=== PATIENT | female | born 1980 | race Caucasian/White ===

== ENCOUNTER 2021-07-09 11:10 | Emergency (ER) | payer OTHER, SELFPAY ==
[~2021-07-09] VITALS: Ht 160 cm; Wt 59.0 kg
[2021-07-09 11:19] VITALS: BP 101/70
[2021-07-09] MEDS ORDERED: KETOROLAC 30 MG/ML VIAL IM ONE (12:15)
--- NOTE | 2021-07-09 13:11 | NUR ---
CT CONSENT OBTAINED. LABS DRAWN THROUGH IV 20G L AC AND GIVEN TO TRISTAN MATTA.
[2021-07-09] MEDS: ACETAMINOPHEN EXTRA STRENGTH 500 MG TAB PO ONE (13:16)
[2021-07-09] MEDS: KETOROLAC 15 MG/ML VIAL IVP ONE (13:16)
[2021-07-09] MEDS: PROCHLORPERAZINE 10 MG/2 ML VIAL IVP ONE (13:17)
--- NOTE | 2021-07-09 13:23 | NUR ---
41 Y/O F BIB SELF FROM HOME, PATIENT PRESENTS TO ED WITH NAUSEA, CONSTIPATION, ABD CRAMPING AND ALSTON SINCE YESTERDAY. PT STATES SHE HAD A HYSTERECTOMY 3 MO AGO AND IS NOW HAVING NEW ONSET OF ABD BLOATING AND CRAMPING THAT RADIATES TO LOWER BACK. DENIES DYSURIA, HEMATURIA, DIARRHEA, VOMITING; SKIN IS PINK/WARM/DRY; AAOX4 WITH EVEN AND STEADY GAIT; LUNGS CLEAR BL; HR EVEN AND REGULAR; PT DENIES ANY FEVER, CP, SOB, OR COUGH AT THIS TIME; PATIENT STATES PAIN OF 9/10 AT THIS TIME; PATIENT POSITIONED FOR COMFORT; HOB ELEVATED; BEDRAILS UP X2; BED DOWN. ER MD MADE AWARE OF PT STATUS. PMH: CLOTTING DISORDER, HYSTERECTOMY NKA MED: IBUPROFEN 2 PO LAST NIGHT
--- NOTE | 2021-07-09 13:28 | NUR ---
Pt c/o severe anxiety and states "I want to leave." Pt states she recently got medicated and feels like her skin is crawling. Dr. Combs made aware and called to bedside to speak with patient. CT head will be cancelled for now. Pt refusing to have CT. Warm blanket provided. Lights turned off in room.
[2021-07-09] MEDS ORDERED: diphenhydrAMINE 50 MG/ML VIAL ONE (13:29)
[2021-07-09] MEDS: diphenhydrAMINE 50 MG/ML VIAL IVP ONE (13:33)
[2021-07-09 13:40] LABS: BASOPHILS % (AUTO) 0.7 % (0.0-2.0); EOSINOPHILS # (AUTO) 0.1 K/uL (0-0.4); EOSINOPHILS % (AUTO) 1.1 % (0.0-4.0); HEMATOCRIT 42.4 % (36-48); HEMOGLOBIN 14.3 g/dL (12.0-16.0); LYMPHOCYTES # (AUTO) 1.5 K/uL (2.5-16.5); MEAN CORPUSCULAR HEMOGLOBIN 34 pg (27-31); MEAN CORPUSCULAR HGB CONC 34 g/dL (33-37); MEAN CORPUSCULAR VOLUME 101.1 fL (80-94); MONOCYTES # (AUTO) 0.5 K/uL (0.8-1.0); MONOCYTES % (AUTO) 7.3 % (1.7-9.3); NEUTROPHILS # (AUTO) 4.9 K/uL (1.8-7.7); NEUTROPHILS % (AUTO) 69.9 % (42.2-75.2); PLATELET COUNT (AUTO) 179 K/uL (140-450); RED BLOOD CELL COUNT(AUTO) 4.19 MIL/uL (4.20-5.40); RED CELL DISTRIBUTION WIDTH 13.5 % (11.6-13.7); WHITE BLOOD COUNT (AUTO) 6.9 K/uL (4.8-10.8)
[2021-07-09 13:43] LABS: ALBUMIN 4.1 g/dL (3.4-5.0); ANION GAP 9.7 (8-16); CARBON DIOXIDE 31.5 mmol/L (21-32); CREATININE 0.7 mg/dL (0.6-1.3); POTASSIUM 4.2 mmol/L (3.5-5.1); TOTAL BILIRUBIN 0.7 mg/dL (0.0-1.0)
--- NOTE | 2021-07-09 14:14 | NUR ---
PT STATES SHE IS FEELING A LITTLE MORE COMFORTABLE AFTER BENADRYL DOSE, WOULD LIKE TO CONTINUE CT SCAN. CT WAS CALLED, STATES THEY WILL COME PICK PT UP.
--- NOTE | 2021-07-09 16:00 | NUR ---
PT WAS GIVEN A COPY OF LABS AND CT RESULTS.
[2021-07-09 16:07] VITALS: BP 101/70
--- NOTE | 2021-07-09 16:07 | NUR ---
Patient discharged with v/s stable. Written and verbal after care instructions given and explained. Patient verbalized understanding. Ambulatory with steady gait. All questions addressed prior to discharge. Advised to follow up with PMD.
== END 2021-07-09 16:07 | disposition home or self-care (01) ==
LOC: MED 11:10
DX: R51.9 Headache, unspecified (principal); Z20.822 Contact with and (suspected) exposure to COVID-19; R10.32 Left lower quadrant pain
CPT/HCPCS: 74177; 80053; 85025; 96374; 96375; 99285; J0780; J1200; J1885; Q9967; U0003

== ENCOUNTER 2023-06-30 13:47 | Emergency (ER) | payer BC, OTHER ==
[~2023-06-30] VITALS: Ht 160 cm; Wt 59.0 kg
[~2023-06-30 13:47] MED LIST: IBUP-2213 PO; LID5T TP; METH-1681 PO; ONDA-188 SL
[2023-06-30 14:12] VITALS: BP 100/74; PULSE 74; RESP 20; TEMP 97.9; O2SAT 99
[2023-06-30 14:58] LABS: BASOPHILS % (AUTO) 0.9 % (0.0-2.0); EOSINOPHILS # (AUTO) 0.1 K/uL (0-0.4); EOSINOPHILS % (AUTO) 1.7 % (0.0-4.0); HEMATOCRIT 42.1 % (36-48); LYMPHOCYTES # (AUTO) 1.6 K/uL (2.5-16.5); LYMPHOCYTES % (AUTO) 28.8 % (20.5-51.1); MEAN CORPUSCULAR HEMOGLOBIN 33 pg (27-31); MEAN CORPUSCULAR HGB CONC 33 g/dL (33-37); MEAN CORPUSCULAR VOLUME 100.2 fL (80-94); MONOCYTES # (AUTO) 0.4 K/uL (0.8-1.0); MONOCYTES % (AUTO) 7.3 % (1.7-9.3); NEUTROPHILS # (AUTO) 3.4 K/uL (1.8-7.7); NEUTROPHILS % (AUTO) 61.3 % (42.2-75.2); PLATELET COUNT (AUTO) 171 K/uL (140-450); RED CELL DISTRIBUTION WIDTH 13.2 % (11.6-13.7); WHITE BLOOD COUNT (AUTO) 5.5 K/uL (4.8-10.8)
[2023-06-30] MEDS ORDERED: KETOROLAC 30 MG/ML VIAL IM ONE (15:15)
[2023-06-30 15:31] VITALS: O2SAT 99
[2023-06-30 15:36] LABS: ALBUMIN 3.7 g/dL (3.4-5.0); CALCIUM 9.8 mg/dL (8.5-10.1); CARBON DIOXIDE 33.2 mmol/L (21-32); CREATININE 0.8 mg/dL (0.6-1.3); POTASSIUM 4.2 mmol/L (3.5-5.1); TOTAL BILIRUBIN 0.4 mg/dL (0.0-1.0); TOTAL PROTEIN, SERUM 7.5 g/dL (6.4-8.2)
[2023-06-30] MEDS ORDERED: MORPHINE SULFATE 4 MG/ML SYR IM ONE (16:35)
[2023-06-30] MEDS ORDERED: ACET-8905 PO (16:36)
[2023-06-30 17:20] VITALS: BP 101/74; PULSE 72; RESP 15; TEMP 98.5; O2SAT 99
== END 2023-06-30 17:20 | disposition home or self-care (01) ==
LOC: MED 13:47
DX: M79.10 Myalgia, unspecified site (principal); Z20.822 Contact with and (suspected) exposure to COVID-19; M79.652 Pain in left thigh; R10.84 Generalized abdominal pain; N80.9 Endometriosis, unspecified; Z79.899 Other long term (current) drug therapy
CPT/HCPCS: 36415; 80053; 81002; 81025; 85025; 87426; 96372; 99284; J1885; J2270

== ENCOUNTER 2023-07-19 19:07 | Emergency (ER) | payer BC, OTHER ==
[~2023-07-19] VITALS: Ht 160 cm; Wt 59.0 kg
[~2023-07-19 19:07] MED LIST changes: +ACET-8905 PO
[2023-07-19 19:26] VITALS: BP 112/68; PULSE 74; RESP 18; TEMP 97.7; O2SAT 98
[2023-07-19 20:45] VITALS: TEMP 97.7
[2023-07-19] MEDS ORDERED: ONDANSETRON 4 MG/2 ML VIAL IVP ONE (21:35)
[2023-07-19] MEDS ORDERED: MORPHINE SULFATE 4 MG/ML SYR IVP ONE (21:35)
[2023-07-19 21:53] LABS: BASOPHILS # (AUTO) 0.1 K/uL (0.00-0.22); BASOPHILS % (AUTO) 1.1 % (0.0-2.0); EOSINOPHILS # (AUTO) 0.1 K/uL (0-0.4); EOSINOPHILS % (AUTO) 2.1 % (0.0-4.0); HEMATOCRIT 39.7 % (36-48); HEMOGLOBIN 13.4 g/dL (12.0-16.0); LYMPHOCYTES # (AUTO) 2.2 K/uL (2.5-16.5); LYMPHOCYTES % (AUTO) 37.5 % (20.5-51.1); MEAN CORPUSCULAR HEMOGLOBIN 34 pg (27-31); MEAN CORPUSCULAR HGB CONC 34 g/dL (33-37); MEAN CORPUSCULAR VOLUME 99.6 fL (80-94); MONOCYTES # (AUTO) 0.4 K/uL (0.8-1.0); MONOCYTES % (AUTO) 6.4 % (1.7-9.3); NEUTROPHILS # (AUTO) 3.1 K/uL (1.8-7.7); NEUTROPHILS % (AUTO) 52.9 % (42.2-75.2); PLATELET COUNT (AUTO) 156 K/uL (140-450); RED BLOOD CELL COUNT(AUTO) 3.99 MIL/uL (4.20-5.40); RED CELL DISTRIBUTION WIDTH 13.2 % (11.6-13.7); WHITE BLOOD COUNT (AUTO) 5.8 K/uL (4.8-10.8)
[2023-07-19 22:22] LABS: ANION GAP 9.3 (8-16); CARBON DIOXIDE 31.2 mmol/L (21-32); CREATININE 0.9 mg/dL (0.6-1.3); POTASSIUM 4.5 mmol/L (3.5-5.1); TOTAL BILIRUBIN 0.2 mg/dL (0.0-1.0); TOTAL PROTEIN, SERUM 7.6 g/dL (6.4-8.2)
[2023-07-20] MEDS ORDERED: MORPHINE SULFATE 4 MG/ML SYR IVP ONE (00:50)
[2023-07-20 05:50] VITALS: BP 99/74; PULSE 60; RESP 18; O2SAT 98
== END 2023-07-20 05:50 | disposition home or self-care (01) ==
LOC: MED 19:07
DX: R51.9 Headache, unspecified (principal); M54.50 Low back pain, unspecified; R10.2 Pelvic and perineal pain; R22.42 Localized swelling, mass and lump, left lower limb; Z86.718 Personal history of other venous thrombosis and embolism; Z79.899 Other long term (current) drug therapy; Z79.1 Long term (current) use of non-steroidal anti-inflammatories (NSAID); W01.0XXA Fall on same level from slipping, tripping and stumbling without subsequent striking against object, initial encounter; Y92.002 Bathroom of unspecified non-institutional (private) residence as the place of occurrence of the external cause; Y93.89 Activity, other specified; Y99.8 Other external cause status
CPT/HCPCS: 36415; 70450; 72131; 72170; 80053; 81025; 85025; 93971; 96374; 96375; 96376; 99285; J2270; J2405; Q0092

== ENCOUNTER 2023-07-27 13:50 | Emergency (ER) | payer BC, OTHER | END 2023-07-27 14:17 | disposition left against medical advice (07) | LOC: MED 13:50 | DX: R10.9 Unspecified abdominal pain (principal); Z53.21 Procedure and treatment not carried out due to patient leaving prior to being seen by health care provider ==

== ENCOUNTER 2024-05-01 21:52 | Emergency (ER) | payer BC, OTHER ==
[~2024-05-01] VITALS: Ht 157.5 cm; Wt 59.0 kg
[2024-05-01 22:02] VITALS: BP 119/85; PULSE 71; RESP 18; TEMP 98.2; O2SAT 98
[2024-05-01 22:29] LABS: APPEARANCE,URINE CLEAR (CLEAR); BILIRUBIN,URINE NEGATIVE (NEGATIVE); BLOOD, URINE TRACE-I (NEGATIVE); COLOR,URINE YELLOW (YELLOW); LEUKOCYTE ESTERASE ,URINE NEGATIVE (NEGATIVE); NITRITE, URINE NEGATIVE (NEGATIVE); PROTEIN,URINE NEGATIVE (NEGATIVE); UGLUCOSE NEGATIVE (NEGATIVE); UROBILINOGEN,URINE 0.2 EU/dL (0.2 - 1)
[2024-05-01 22:41] LABS: BACTERIA,URINE 10-30 (MOD) /HPF (None Seen); MUCUS,URINE 1+ /LPF (None Seen); SQUAMOUS EPITHELIAL CELL,UR 4-10 (MOD) /LPF (0-3 (FEW)); WBC,URINE 0-5 /HPF (0-5)
[2024-05-02] MEDS ORDERED: ACYC200C26 PO (01:42)
[2024-05-02 01:54] VITALS: BP 116/85; PULSE 72; RESP 18; TEMP 98; O2SAT 98
== END 2024-05-02 01:54 | disposition home or self-care (01) ==
LOC: MED 21:52
DX: R51.9 Headache, unspecified (principal); B00.1 Herpesviral vesicular dermatitis; Z90.49 Acquired absence of other specified parts of digestive tract; Z90.710 Acquired absence of both cervix and uterus
CPT/HCPCS: 81001; 81025; 87086; 99283

== ENCOUNTER 2024-06-18 17:56 | Emergency (ER) | payer BC, OTHER ==
[~2024-06-18] VITALS: Ht 160 cm; Wt 61.2 kg
[~2024-06-18 17:56] MED LIST changes: +ACYC200C26 PO
[2024-06-18 18:03] VITALS: BP 117/53; PULSE 94; RESP 18; TEMP 97.8; O2SAT 99
[2024-06-18 18:43] LABS: APPEARANCE,URINE CLEAR (CLEAR); BILIRUBIN,URINE NEGATIVE (NEGATIVE); BLOOD, URINE TRACE-I (NEGATIVE); COLOR,URINE YELLOW (YELLOW); LEUKOCYTE ESTERASE ,URINE 2+ (NEGATIVE); NITRITE, URINE NEGATIVE (NEGATIVE); PROTEIN,URINE NEGATIVE (NEGATIVE); UGLUCOSE NEGATIVE (NEGATIVE); UROBILINOGEN,URINE 0.2 EU/dL (0.2 - 1)
[2024-06-18 18:50] LABS: FLU A ANTIGEN negative (NEGATIVE); FLU B ANTIGEN negative (NEGATIVE)
[2024-06-18 18:54] LABS: RBC,URINE 0-5 /HPF (0-5); WBC,URINE 16-25 (MOD) /HPF (0-5)
[2024-06-18 18:55] LABS: BACTERIA,URINE 1+ /HPF (None Seen); MUCUS,URINE None Seen /LPF (None Seen); SQUAMOUS EPITHELIAL CELL,UR None Seen /LPF (0-3 (FEW)); YEAST,URINE None Seen /HPF (None Seen)
[2024-06-18] MEDS: KETOROLAC 30 MG/ML VIAL IM ONE (19:15)
[2024-06-18] MEDS ORDERED: CEPH-588 PO (19:21)
[2024-06-18] MEDS ORDERED: GUAI237L76 PO (19:21)
[2024-06-18] MEDS ORDERED: CETI10SG1 PO (19:21)
[2024-06-18] MEDS ORDERED: IBUP-2213 PO (19:21)
[2024-06-18] MEDS ORDERED: ACYC400T14 PO (19:42)
[2024-06-18 19:56] VITALS: BP 119/79; PULSE 71; RESP 12; TEMP 97.6; O2SAT 99
== END 2024-06-18 19:55 | disposition home or self-care (01) ==
LOC: MED 17:56
DX: U07.1 COVID-19 (principal); N39.0 Urinary tract infection, site not specified; K13.70 Unspecified lesions of oral mucosa; H92.03 Otalgia, bilateral; F17.200 Nicotine dependence, unspecified, uncomplicated; Z90.49 Acquired absence of other specified parts of digestive tract; Z90.710 Acquired absence of both cervix and uterus; Z98.890 Other specified postprocedural states; Z79.1 Long term (current) use of non-steroidal anti-inflammatories (NSAID); Z79.2 Long term (current) use of antibiotics; Z79.899 Other long term (current) drug therapy
CPT/HCPCS: 81001; 81025; 87086; 87210; 87426; 87491; 87804; 96372; 99283; J1885